=== PATIENT | female | born 1945 | race Hispanic/Latino ===

== ENCOUNTER 2017-05-31 10:53 | Outpatient (CLI) | payer MEDICARE, OTHER ==
--- NOTE | 2017-05-31 12:52 | XRay Report ---
XRAY LEFT HIP THREE VIEWS: 05/31/17 10:53:00 CLINICAL: Left hip pain. FINDINGS: Status post total hip replacement with normal appearance of the prosthesis. Moderate osteopenia. No fracture or dislocation. Mild arthritis of the right hip. The pelvic bones are intact. Scoliosis and degenerative change of the lower lower spine. IMPRESSION: Negative study status post total hip replacement.
== END 2017-05-31 10:54 | disposition home or self-care (01) ==
LOC: SPVIMAG 10:53
PROVIDERS: ATTEND Orthopaedic Surgery Sports Medicine
DX: M16.12 Unilateral primary osteoarthritis, left hip (principal); M85.88 Other specified disorders of bone density and structure, other site; Z96.642 Presence of left artificial hip joint